=== PATIENT | male | born 1990 | race Caucasian/White ===

== ENCOUNTER 2019-10-16 03:17 | Emergency (ER) | payer MEDICAID ==
[~2019-10-16] VITALS: Ht 170.2 cm; Wt 86.4 kg
[~2019-10-16 03:17] MED LIST: DIPH25CA83 PO; NAPR-1144 PO; NO HOME MEDS; ONDA4TAB6 PO; PHEN-716 PO; PRED50TA PO
[2019-10-16] MEDS ORDERED: ketorolac trometh inj. 60 MG/2 ML VIAL IM ONE (04:20)
[2019-10-16] MEDS ORDERED: diphenhydrAMINE 25mg capsule PO ONE (04:20)
[2019-10-16] MEDS ORDERED: proCHLORperazine 10mg tablet PO ONE (04:20)
[2019-10-16] MEDS ORDERED: SUMAtriptan succ. 6 MG/0.5ml vial SQ ONE (04:20)
[2019-10-16 05:33] VITALS: BP 110/58
== END 2019-10-16 05:34 | disposition home or self-care (01) ==
LOC: ER 03:17
DX: G43.909 Migraine, unspecified, not intractable, without status migrainosus (principal); F12.90 Cannabis use, unspecified, uncomplicated; Z88.0 Allergy status to penicillin; Z79.899 Other long term (current) drug therapy
CPT/HCPCS: 96372; 99283; J1885; Q0163; J3030; Q0164